=== PATIENT | male | born 1970 | race Caucasian/White ===

== ENCOUNTER 2025-02-22 18:56 | Emergency (ER) | payer MEDICAID, SELFPAY ==
[2025-02-22 18:58] VITALS: BP 135/89; PULSE 118; RESP 18; TEMP 38.1; O2SAT 96
--- NOTE | 2025-02-22 19:18 | EDNOTE_ITS ---
ED Psych RME/HPI General Chief Complaint: Psychiatric Symptoms Stated Complaint: MENTAL EVAL Arrival date/time: 02/22/25 18:56 RME / HPI RME / HPI Narrative: Dr. Garber?s Main ED Evaluation: 54yo male with a history of schizoaffective disorder DOMINIQUE presents to the ED on a 5150 hold. Per [facility], they were summoned on scene due to the patient displaying irate behavior during a verbal altercation and was determined to be a danger to others, therefore, was placed on a hold. Patient denies any physical altercations. Patient states he started feeling nauseated after taking his Abilify today. Denies any fever, chills, vomiting or any other associated symptoms. Related Data Allergies Allergy/AdvReac Type Severity Reaction Status Date / Time haloperidol (From Haldol) Allergy Intermediate Vomiting Verified 02/22/25 20:35 Review of Systems Review of Systems Systems Reviewed: All systems reviewed, normal except as documented ED Exam Narrative Physical exam: GENERAL APPEARANCE: alert and oriented x 4, well-developed, well-nourished, no acute distress VITALS: All vitals were reviewed and the pulse ox is 96% on room air, which is normal according to my interpretation. HEENT: Normocephalic, atraumatic; pupils equal, round, reactive to light; EOMI; mucous membranes pink, moist; oropharynx clear NECK: Supple LUNGS: CTABL; no wheezes, no rales, no rhonchi HEART: Regular rate, regular rhythm; normal S1, S2; no murmurs ABDOMEN: non distended; normal BS; soft, no tenderness, no guarding, no rebound; no masses, no organomegaly, no hernia BACK: no CVA tenderness EXTREMITIES: atraumatic; no edema NEUROLOGIC: awake; alert and oriented x4; cranial nerves II-XII grossly intact; no focal sensory or motor deficits PSYCHIATRIC: appropriate mood and affect, has pressured speech SKIN: warm, dry, normal color; no rashes Course Course Course Narrative: CXR is ordered for determining the etiology of fever. Quality Measures Current suspected stage: ruled out Possible source: unknown Blood cultures ordered: yes Antibiotic ordered: Yes Pertinent labs: 02/22/25 20:11 Lactic Acid 1.8 mMol/L (0.4-2.0) Procalcitonin 0.12 ng/ml (0.0-0.49) sepsis Orders Category Date Time Status Bedside Blood Glucose NOW Care 02/22/25 19:40 Active Bedside COVID-19 Antigen Test NOW Care 02/22/25 21:14 Active Bedside Influenza A&B Antigen Test NOW Care 02/22/25 21:14 Active Senior Hr Manager Q4H START 00 Care 02/22/25 19:40 Active Insert IV NOW Care 02/22/25 19:40 Active Strict Intake and Output Routine Care 02/22/25 19:40 Ordered XR chest 1V SEPSIS PROTOCOL Stat Exams 02/22/25 19:40 Completed Acetaminophen Stat Lab 02/22/25 20:11 Completed Alcohol, Blood Medical Stat Lab 02/22/25 20:11 Completed Blood Culture (Lab) Stat Lab 02/22/25 20:05 Received CBC Stat Lab 02/22/25 20:11 Completed Comprehensive Metabolic Panel Stat Lab 02/22/25 20:11 Completed Drug Screen,Urine Stat Lab 02/22/25 22:28 Completed Lactate (Lactic Acid) Stat Lab 02/22/25 20:11 Completed Partial Thromboplastin Time Stat Lab 02/22/25 20:11 Completed Procalcitonin Stat Lab 02/22/25 20:11 Completed Prothrombin Time with INR Stat Lab 02/22/25 20:11 Completed Salicylate Stat Lab 02/22/25 20:11 Completed Troponin I Stat Lab 02/22/25 20:11 Completed Urinalysis Stat Lab 02/22/25 22:28 Completed Urine Culture Stat Lab 02/22/25 22:28 Received Acetaminophen Tab [Tylenol ES Tab] Med 02/22/25 20:45 Discontinued 1,000 mg PO X1 ONE DiphenhydrAMINE [Benadryl] Med 02/23/25 00:17 Discontinued 50 mg PO X1 ONE DiphenhydrAMINE [Benadryl] Med 02/23/25 02:21 Discontinued 50 mg PO X1 ONE OLANZapine [ZyPREXA] Med 02/23/25 00:17 Discontinued 20 mg PO X1 ONE Sodium Chloride 0.9% 1000 ml [Ns] 1,000 ml Med 02/22/25 20:45 Discontinued IV 999 mls/hr Valproic Acid Syrup [Depakene Syrup] Med 02/23/25 00:06 Discontinued 1,000 mg PO X1 ONE cefTRIAXone/D5w 1gm IV premix [Rocephin/D5w 1gm IV Med 02/22/25 20:45 Discontinued premix] 1 gm in 50 ml IV X1 EKG (RT) Stat RT 02/22/25 19:40 Draft Vital Signs Vital signs: Vital Signs Temperature 100.5 F H 02/22/25 18:58 Pulse Rate 118 H 02/22/25 18:58 Respiratory Rate 18 02/22/25 18:58 Blood Pressure 135/89 H 02/22/25 18:58 Pulse Oximetry (%) 96 02/22/25 18:58 Oxygen Delivery Method Room Air 02/22/25 18:58 Psych MDM Narrative MDM Narrative:: Scribe Attestation: 02/22/25 - Alma Delia Graham am scribing for and in the presence of Dr. Garber. 1945: Sepsis alert initiated due to the patient being febrile and tachycardic. Orders made at this time are congruent with ED Adult Sepsis Order List. Re- evaluation is to be completed. 2109: NS IVF started. Patient is requesting valproic acid, but does not know how many mg he is supposed to take. Upon review of [facility] the [facility] records, patient was last given his valproic acid at 1730. 1: Sepsis reassessment performed consisting of lab review, vitals, physical exam including auscultation of heart, lungs, and visual evaluation of capillary refills, mucosal membranes and extremities. Patient met SIRS criteria however lactic and pro felipe are all within normal range. Reassessment complete, patient is not septic. 2250: Patient is medically clear for crisis evaluation. Patient was placed in observation for treatment and monitoring of psychiatric symptoms, at 2250 02/22/2025. Treatment plan includes psychiatric consult, reassessments, and possible placement into psychiatric facility. 0600: Care signed out to Dr. Arriaga (emergency physician). Past medical, surgical, social and family history reviewed. Vitals and home medications reviewed. Results and treatment plan discussed. They will assume the care of the patient at this time and will follow the patient, pending psychiatric evaluation. At this time, observation has ended. Patient data External records reviewed:: [facility] previous records (Per chart review, patient has no previous ED visits or admissions to this facility.) and Other (specify) (Per [facility] records, patient is on Ability 300mg IM every 4 weeks and Valproic Acid 250mg/5mL.) Clinical information provided by:: patient Social determinants that could affect healthcare access:: mental health Patient has the following chronic illnesses:: schizoaffective disorder How is presenting disease/condition affected by chronic disease/condition?: caused by Evaluation data The following diagnostics were reviewed and interpreted by me:: lab results, radiology exam(s) and EKG tracing(s) Lab and/or radiology exams considered but not ordered:: none Interpretation Summary: WBC count is elevated at 12.4, PT and INR are normal, Lactate is normal, Troponin is normal, Procalcitonin is normal, UA is unremarkable, UDS is negative, Acetaminophen is negative, Blood Alcohol is negative, according to my interpretation. EKG done at 1955, sinus tachycardia, rate of 120, left axis deviation, no ectopy, no STEMI, according to my interpretation. --------- [facility] Report Signed Patient: JOBY ARELLANO Record#: [id number] Birthdate: 1970 Age/Sex: 54 / M Location: [facility] Attending Dr: Ordering Physician: Bruce Graber MD Date of Service: 02/22/25 Procedure(s): XR chest 1V SEPSIS PROTOCOL Accession Number(s): [id number] cc: Baldemar Luu MD; NO PRIMARY/FAMILY,PHYSICIAN; Bruce Garber MD~ Examination: AP chest single view Technique: AP portable upright chest single view. Exam date and time: February 22, 2025, 2014 hrs. Indications: Sepsis protocol Findings: Normal heart size. Lungs are clear. The osseous structures are intact. Impression: No pneumonia identified Dictated By: Baldemar Luu MD Signed By: <Electronically signed by Baldemar Luu MD in OV> 02/22/252057 Medications / Prescriptions Medications or Prescriptions considered but not ordered:: none Medication administrations:: Medication Administration History Discontinued Medications Acetaminophen (Acetaminophen 500 Mg Tablet) 1,000 mg PO X1 ONE Stop: 02/22/25 20:46 Last Admin: 02/22/25 21:10 Dose: 1,000 mg Documented By: EF Diphenhydramine HCl (Diphenhydramine Elix 25 Mg/10 Ml Udc) 50 mg PO X1 ONE Stop: 02/23/25 00:18 Last Admin: 02/23/25 03:33 Dose: Not Given Documented By: EF Non-Admin Reason: Cancelled by Provider Diphenhydramine HCl (Diphenhydramine 25 Mg Capsule) 50 mg PO X1 ONE Stop: 02/23/25 02:22 Last Admin: 02/23/25 03:27 Dose: 50 mg Documented By: EF Ceftriaxone Sodium/Dextrose (Rocephin/D5w 1gm Iv Premix) 1 gm in 50 mls @ 100 mls/hr IV X1 ONE Stop: 02/22/25 21:14 Last Infusion: 02/22/25 21:39 Dose: Infused Documented By: Admin: 02/22/25 21:09 Dose: 100 mls/hr Documented By: EF Sodium Chloride (Ns) 1,000 mls @ 999 mls/hr IV .Q1H1M ONE Stop: 02/22/25 21:45 Last Infusion: 02/22/25 22:11 Dose: Infused Documented By: Admin: 02/22/25 21:10 Dose: 999 mls/hr Documented By: EF Olanzapine (Olanzapine 5 Mg Tablet) 20 mg PO X1 ONE Stop: 02/23/25 00:18 Last Admin: 02/23/25 04:00 Dose: 20 mg Documented By: CB Comments: MEDS BROUGHT DOWN BY CAP CUTTER AT THIS TIME. Valproic Acid (Valproic Acid Syrup 250 Mg/5 Ml Udc) 1,000 mg PO X1 ONE Stop: 02/23/25 00:07 Last Admin: 02/23/25 03:27 Dose: 1,000 mg Documented By: EF see above Consultations Consultation(s) initiated? (list below): No Diagnosis Psych Differential Diagnosis: acute psychosis, chronic schizophrenia and bipolar disorder Most likely diagnosis given after review of the tests above:: see clinical impression below Admission Indicated Admission indicated?: not indicated Admission Request Was there a request for admission?: No Disposition Plan Disposition Plan: other (specify) (Signed out to Dr. Arriaga at 0600 pending crisis evaluation.) Discharge Plan Prescriptions/Referrals Referrals: No Primary/Family,Physician [Primary Care Provider] - In 1 week Problem List Clinical Impression: At risk for danger to others Patient/Caregiver Discharge Instructions Print Language: Kinyarwanda
--- NOTE | 2025-02-22 19:40 | EKG_ITS ---
[facility] Test Date: 2025-02-22 Pat Name: JOBY ARELLANO Department: Room: - Gender: Male Ict Educator: : 1970 Requested By: Bruce Peralta Order Number: [id number] Reading MD: Bruce Peralta Measurements Intervals Grant Rate: 120 P: HI: QRS: -74 QRSD: 106 T: 67 QT: 319 QTc: 452 Interpretive Statements SUPRAVENTRICULAR TACHYCARDIA PATTERN CONSISTENT WITH PULMONARY DISEASE LEFT ANTERIOR FASCICULAR BLOCK [QRS AXIS <= -45, QR IN I, RS IN II] MODERATE ST DEPRESSION [0.05+ mV ST DEPRESSION] No previous ECG available for comparison /store/S0/[id number].pdf
--- NOTE | 2025-02-22 19:40 | XR_ITS ---
Examination: AP chest single view Technique: AP portable upright chest single view. Exam date and time: February 22, 2025, 2014 hrs. Indications: Sepsis protocol Findings: Normal heart size. Lungs are clear. The osseous structures are intact. Impression: No pneumonia identified
[2025-02-22 20:03] VITALS: PULSE 122
[2025-02-22 20:13] VITALS: BP 159/116; PULSE 104; RESP 24; O2SAT 97; BMI 30.4
[2025-02-22 20:17] LABS: Lactate (Lactic Acid) 1.8 mMol/L (0.4-2.0)
[2025-02-22 20:18] LABS: Basophils # (Auto) 0.1 Thou/mm3 (0.0-0.2); Basophils % (Auto) 1 % (0-2.5); Eosinophils # (Auto) 0.1 Thou/mm3 (0.0-0.5); Eosinophils % (Auto) 1 % (0-10); Hematocrit 44.7 % (41.0-53.0); Hemoglobin 15.9 g/dL (13.5-16.0); Immature Granulocytes % (Auto) 1 % (0-0); Immature Granulocytes Auto 0.07 Thou/mm3 (0.00-0.00); Lymphocytes # (Auto) 2.7 Thou/mm3 (1.0-4.8); Lymphocytes % (Auto) 22 % (10-50); Mean Corpuscular HGB Conc 35.6 g/dl (31.0-37.0); Mean Corpuscular Hemoglobin 31.9 pg (25.0-35.0); Mean Corpuscular Volume 90 fL (80-100); Monocytes # (Auto) 1.1 Thou/mm3 (0.0-0.8); Monocytes % (Auto) 9 % (0-12); Neutrophils # (Auto) 8.3 Thou/mm3 (1.8-7.7); Neutrophils % (Auto) 67 % (37-80); Nucleated Red Blood Cell % 0 /100 WBC (0); Platelet Count 239 Thou/mm3 (140-440); RDW Standard Deviation 44.5 fL (35.1-43.9); Red Blood Count 4.98 Miln/mm3 (4.50-5.90); White Blood Count 12.4 Thou/mm3 (3.8-10.6)
[2025-02-22 20:45] LABS: INR 0.9 (0.9-1.3); Partial Thromboplastin Time 23.6 Seconds (22.0-36.0); Prothrombin Time 10.4 Seconds (9.0-12.2)
[2025-02-22] MEDS: cefTRIAXone/D5w 1gm IV premix 1 GM/50 ML BAG IV (21:09)
[2025-02-22 21:10] VITALS: TEMP 38.1
[2025-02-22] MEDS: SODIUM CHLORIDE 0.9% 1000 ML 1,000 ML 999 ML IV (21:10)
[2025-02-22] MEDS: ACETAMINOPHEN 500 MG TABLET 1000 MG PO (21:10)
[2025-02-22 21:36] LABS: Acetaminophen < 2.0 mcg/mL (10.0-20.0); Alanine Aminotransferase 28 U/L (10-49); Albumin, Serum 4.6 gm/dL (3.5-5.0); Albumin/Globulin Ratio 1.6 (1.2-2.2); Alcohol, Blood Medical < 3.0 mg/dL (0-10.0); Alkaline Phosphatase 69 U/L (46-116); Anion Gap 7 (7-16); Aspartate Amino Transferase 28 U/L (0-34); BUN/Creatinine Ratio 10 Ratio (12-20); Bilirubin,Total 0.3 mg/dL (0.3-1.2); Blood Urea Nitrogen 12 mg/dL (9-23); Calcium 10.1 mg/dL (8.3-10.6); Calcium (Corrected) 10.1 mg/dL (8.5-10.1); Carbon Dioxide 26.7 mMol/L (20.0-31.0); Chloride 106 mMol/L (98-107); Creatinine (Component) 1.2 mg/dL (0.6-1.3); Estimated Creatinine Clearance 76.1 mL/min (>60); Globulin 2.9 gm/dL (2.3-3.5); Glucose 152 mg/dL (74-106); Osmolality,Calculated 282 (275-295); Potassium 3.7 mMol/L (3.4-5.1); Procalcitonin 0.12 ng/ml (0.0-0.49); Salicylate < 3.0 mg/dL; Sodium 140 mMol/L (136-145); Total Protein 7.5 gm/dL (5.7-8.2); Troponin I < 0.020 ng/mL (0.0-0.045); eGFR > 60 See Note
[2025-02-22 22:10] VITALS: TEMP 37.7
[2025-02-22 22:35] LABS: Collection Type, Urine Clean Catch
[2025-02-22 22:43] VITALS: BP 116/65; PULSE 70; RESP 18; TEMP 37.7; O2SAT 98
[2025-02-22 22:49] LABS: Amphetamine/Methamp Scrn,U Negative (Negative); Barbiturate Screen,Urine Negative (Negative); Benzodiazepines Screen,Urine Negative (Negative); Benzoylecgonine Screen, Ur Negative (Negative); Fentanyl Screen,Urine Negative (Negative); Opiate Screen,Urine Negative (Negative); THC Screen,Urine Negative (Negative)
[2025-02-22 23:06] LABS: Bilirubin,Urine Negative (Negative); Blood,Urine 1+ (Negative); Clarity,Urine Clear (Clear/Hazy); Color,Urine Lt-Yellow (Lt Yel-Yel); Glucose, Urine Negative (Negative); Ketones,Urine Negative (Negative); Leukocyte Esterase,Urine Negative (Negative); Nitrite,Urine Negative (Negative); PH,Urine 6.5 (5.0-7.0); Protein,Urine Negative (Neg - Trace); RBC,Urine 17 /hpf (0-3); Specific Gravity,Urine 1.013 (1.001-1.035); Squamous Epithelial Cell,Urine 1 /hpf (0-5); Urobilinogen,Urine Negative mg/dL (0.0-1.0); WBC,Urine 1 /hpf (0-5)
[2025-02-23] VITALS (7 sets, daily range): BP systolic 109–139; BP diastolic 68–89; PULSE 56–72; RESP 16–18; TEMP 36.6–37.3; O2SAT 95–98
[2025-02-23] MEDS: DiphenhydrAMINE 25 MG CAPSULE 50 MG PO (03:27)
[2025-02-23] MEDS: VALPROIC ACID SYRUP 250 MG/5 ML UDC 1000 MG PO (03:27)
[2025-02-23] MEDS: OLANZapine 5 MG TABLET 20 MG PO (04:00)
--- NOTE | 2025-02-23 06:19 | PD.EDADDENDU ---
Emergency Room Addendum Addendum Narrative: 0600: Care assumed from Dr. Garber, the previous shift emergency physician. Past medical, surgical, social and family history reviewed. Vitals and home medications reviewed. I will assume the care of the patient at this time, pending CRISIS evaluation. Please refer to the emergency department record for history and examination from initial visit.? The patient was placed in ED observation care at 02/23/2025 at 0600 hours. The patient was placed in ED observation care pending CRISIS evaluation. The patients past medical history, social history, and family history were reviewed. The plan of care will include serial examinations. While in ED observation the patient will have access to water, food, and personal hygiene. If the patient takes home medication(s), they will be continued in ED observation. Physical exam by me shows patient under no acute distress at this time. 1405: Mental health is going to rescind the psychiatric hold. Safety plan in place, patient will resume prior medications. Patient will be discharged. 1645: Patient discharged. ED observation care ended at 02/23/2025 at 1645 hours. Diagnoses: - At risk for danger to others
--- NOTE | 2025-02-23 08:15 | PC.NURSE ---
Bridal Sales Consultant spoke with patient
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
--- NOTE | 2025-02-23 15:20 | PC.CC ---
1510- Ping Up made verbal contact via telephone call to group therapy counselor Miguel Villarreal regarding the shrimp picker, as pt remain in the ED after he was d/c at 1300 and is still waiting to be picked up by the care home. Phil informed Ping Up that he will need to speak to his director before they shrimp picker the pt. Ping Up informed Phil that there is no legal reason to keep the pt here in the ED and pressed for a shrimp picker time, which Phil still declined to state when they will shrimp picker the pt. battery assembler Gris will f/u with Phil informing him that he must p/u the pt gerri as the pt is d/c.
--- NOTE | 2025-02-23 15:39 | PC.CC ---
1540- [facility] Ed Ann attempted to contact Migeul Villarreal regarding his p/u time for the pt but was transferred to voice mail. Hospital Nurse Liaison left a message requesting a return call and informed him that the ER will be providing pt with transporation home. As of this writing, Miguel has not returned the call.
--- NOTE | 2025-02-23 15:50 | PC.CC ---
1550- [facility] Ed Ann contacted conservator Leeroy [phone] and informed the conservator that Miguel Villarreal is not returning the call and would need to to speak to someone else who can help arrange transportation for pt to return home. Conservator provided the name and phone number of Leilani Hilariodez [phone] who can assist as she works for [employer] 2431- Weather Analyst spoke with Leilani and she reported her RN spoke with our register of wills Gris and reported that transportation has been arranged by [facility] [place]. ETA is unknown at this time.
--- NOTE | 2025-02-23 16:14 | PC.NURSE ---
gave report to care facility to Yoana. Told SW that transport is on the way for patient.
--- NOTE | 2025-02-23 16:45 | PC.NURSE ---
Staff from care facility came to brick picker patient. SW talked with staff in regards to safety plan. Patient no signs of acute distress.
== END 2025-02-23 16:45 | disposition home or self-care (01) ==
PROVIDERS: Emergency Provider Emergency Medicine
DX: F25.9 Schizoaffective disorder, unspecified (principal)
CPT/HCPCS: 36415; 71045; 80053; 80307; 80320; 80329; 81001; 83605; 84145; 84484; 85025; 85610; 85730; 87040; 87086; 87400; 87811; 93005; 96127; 96361; 96365; 99284; J0696; J7030; A9270; G0480

== ENCOUNTER 2025-10-09 16:28 | Emergency (ER) | payer MEDICAID, SELFPAY ==
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
[2025-10-09 16:39] VITALS: BMI 29.8
[2025-10-09 16:44] VITALS: BP 162/99; PULSE 79; RESP 20; TEMP 36.7; O2SAT 98
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
[2025-10-09 17:17] LABS: Collection Type, Urine Clean Catch; Squamous Epithelial Cell,Urine 0 /hpf (0-5)
[2025-10-09 17:24] LABS: Basophils # (Auto) 0.1 Thou/mm3 (0.0-0.2); Basophils % (Auto) 1 % (0-2.5); Eosinophils # (Auto) 0.2 Thou/mm3 (0.0-0.5); Eosinophils % (Auto) 2 % (0-10); Hematocrit 41.3 % (41.0-53.0); Hemoglobin 14.5 g/dL (13.5-16.0); Immature Granulocytes Auto 0.06 Thou/mm3 (0.00-0.00); Lymphocytes # (Auto) 2.9 Thou/mm3 (1.0-4.8); Lymphocytes % (Auto) 25 % (10-50); Mean Corpuscular HGB Conc 35.1 g/dl (31.0-37.0); Mean Corpuscular Hemoglobin 32.5 pg (25.0-35.0); Mean Corpuscular Volume 93 fL (80-100); Monocytes # (Auto) 1.3 Thou/mm3 (0.0-0.8); Monocytes % (Auto) 11 % (0-12); Neutrophils # (Auto) 7.0 Thou/mm3 (1.8-7.7); Neutrophils % (Auto) 61 % (37-80); Nucleated Red Blood Cell # 0.00 Thou/mm3 (0.00-0.00); Nucleated Red Blood Cell % 0 /100 WBC (0); Platelet Count 226 Thou/mm3 (140-440); RDW Standard Deviation 44.8 fL (35.1-43.9); Red Blood Count 4.46 Miln/mm3 (4.50-5.90); White Blood Count 11.5 Thou/mm3 (3.8-10.6)
[2025-10-09 17:40] LABS: Alanine Aminotransferase 20 U/L (10-49); Albumin, Serum 4.4 gm/dL (3.5-5.0); Albumin/Globulin Ratio 1.6 (1.2-2.2); Alkaline Phosphatase 53 U/L (46-116); Anion Gap 8 (7-16); Aspartate Amino Transferase 26 U/L (0-34); BUN/Creatinine Ratio 5 Ratio (12-20); Bilirubin,Total 0.3 mg/dL (0.3-1.2); Blood Urea Nitrogen 6 mg/dL (9-23); Calcium 9.3 mg/dL (8.3-10.6); Calcium (Corrected) 9.3 mg/dL (8.5-10.1); Carbon Dioxide 26.1 mMol/L (20.0-31.0); Chloride 98 mMol/L (98-107); Creatinine (Component) 1.1 mg/dL (0.6-1.3); Estimated Creatinine Clearance 91.7 mL/min (>60); Globulin 2.7 gm/dL (2.3-3.5); Glucose 115 mg/dL (74-106); Osmolality,Calculated 263 (275-295); Potassium 4.3 mMol/L (3.4-5.1); Sodium 132 mMol/L (136-145); Total Protein 7.1 gm/dL (5.7-8.2); eGFR > 60 See Note
[2025-10-09 17:46] LABS: Bilirubin,Urine Negative (Negative); Blood,Urine 2+ (Negative); Clarity,Urine Clear (Clear/Hazy); Color,Urine Colorless (Lt Yel-Yel); Glucose, Urine Negative (Negative); Ketones,Urine Negative (Negative); Leukocyte Esterase,Urine Negative (Negative); Nitrite,Urine Negative (Negative); PH,Urine 7.0 (5.0-7.0); Protein,Urine Negative (Neg - Trace); RBC,Urine 1 /hpf (0-3); Specific Gravity,Urine 1.007 (1.001-1.035); Urobilinogen,Urine Negative mg/dL (0.0-1.0); WBC,Urine < 1 /hpf (0-5)
[2025-10-09 18:06] LABS: Alcohol, Urine Negative (Negative); Amphetamine/Methamp Scrn,U Negative (Negative); Barbiturate Screen,Urine Negative (Negative); Benzodiazepines Screen,Urine Negative (Negative); Benzoylecgonine Screen, Ur Negative (Negative); Fentanyl Screen,Urine Negative (Negative); Opiate Screen,Urine Negative (Negative); THC Screen,Urine Negative (Negative)
[2025-10-09 18:58] VITALS: BP 130/83; PULSE 73; RESP 18; TEMP 37; O2SAT 96
[2025-10-09] MEDS: VALPROIC ACID SYRUP 250 MG/5 ML UDC PO ×2 (20:00)
[2025-10-09 21:00] VITALS: BP 119/85; PULSE 63; RESP 17; TEMP 36.9; O2SAT 97
[2025-10-09 23:04] VITALS: BP 116/82; PULSE 66; RESP 16; TEMP 36.8; O2SAT 98
[2025-10-10] VITALS (7 sets, daily range): BP systolic 110–135; BP diastolic 71–89; PULSE 61–81; RESP 17–20; TEMP 36.4–36.9; O2SAT 95–98
--- NOTE | 2025-10-10 05:53 | PD.EDADDENDU ---
Emergency Room Addendum Addendum Narrative: 2230: Care assumed from Hola Coles NP, (emergency mid-level provider). Past medical, surgical, social and family history reviewed. Vitals and home medications reviewed. Results and treatment plan discussed. I will assume the care of the patient at this time and will follow the patient, pending psych evaluation. 0600: Care assumed by Dr. Bullard (emergency physician). Past medical, surgical, social and family history reviewed. Vitals and home medications reviewed. Results and treatment plan discussed. They will assume the care of the patient at this time and will follow the patient, pending psych evaluation.
--- NOTE | 2025-10-10 07:36 | EDNOTE_ITS ---
Emergency Room Addendum Addendum Narrative: I took over the care from previous shift physician at _0600_ on _10/10/25_. See previous notes for complete H & P and ED course. I reviewed all diagnostic test results. Blood tests and urine tests unremarkable Patient is medically cleared for psychiatric care. Diagnoses include: Gravely Disabled with history of schizophrenia and bipolar disorder We discussed the case with [facility]. About the presentation and exam and diagnostics and treatments here. And need of further care there. Agreed to accept the patient. During my watch, the patient remained stable. Don Bullard MD
[2025-10-10] MEDS: VALPROIC ACID SYRUP 250 MG/5 ML UDC PO (08:57)
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
--- NOTE | 2025-10-10 15:20 | PC.CC ---
Yancy Madsen provided accepting information. Patient is accepted by Dr. Madsen. Transportation to be arranged for patient to arrive [facility].
--- NOTE | 2025-10-10 15:29 | PC.NURSE ---
I GOT A CALL FROM NICKIE BERRY AND SPOKE TO BIGG TO WHOM I GAVE REPORT.
== END 2025-10-10 16:10 ==
PROVIDERS: Registered Nurse General Practice; Emergency Provider Emergency Medicine
DX: Z04.6 Encounter for general psychiatric examination, requested by authority (principal); F20.9 Schizophrenia, unspecified; F31.9 Bipolar disorder, unspecified; F43.10 Post-traumatic stress disorder, unspecified; Z75.1 Person awaiting admission to adequate facility elsewhere
CPT/HCPCS: 36415; 80053; 80307; 80320; 81001; 85025; 96127; 99284; A9270; G0480